=== PATIENT | female | born 1990 | race Caucasian/White ===

== ENCOUNTER 2016-06-27 16:59 | Emergency (ER) | payer SELFPAY ==
--- NOTE | 2016-06-27 20:02 | ER Document Report ---
ED Medical Screen (RME) - General Chief Complaint: Vaginal Bleeding Stated Complaint: POSSIBLE MISCARRIAGE Time Seen by Provider: 06/27/16 19:54 Notes: The patient is a 26-year-old female, LMP 05/25/16, presents after she noticed to like clots in the toilet today. She took 3 tests and 1 of them was positive. She thinks her blood type is negative because she usually requires RhoGam. PE: NAD. RRR. Abdomen soft and non-tender. I have greeted and performed a rapid initial assessment of this patient. A comprehensive ED assessment and evaluation of the patient, analysis of test results and completion of the medical decision making process will be conducted by additional ED providers. TRAVEL OUTSIDE OF THE [place] IN LAST 30 DAYS: No - Related Data Allergies/Adverse Reactions: strawberry Allergy (Verified 06/27/16 17:47) Past Medical History - Social History Frequency of alcohol use: None Drug Abuse: None Renal/ Medical History: Denies: Hx Peritoneal Dialysis Surgical Hx: Negative - Immunizations Hx Diphtheria, Pertussis, Tetanus Vaccination: Yes Physical Exam - Vital signs Vitals: Temp Pulse Resp BP Pulse Ox 98.1 F 91 16 148/91 H 100 06/27/16 17:47 06/27/16 17:47 06/27/16 17:47 06/27/16 17:47 06/27/16 17:47 Course - Vital Signs Vital signs: Temp Pulse Resp BP Pulse Ox 98.1 F 91 16 148/91 H 100 06/27/16 17:47 06/27/16 17:47 06/27/16 17:47 06/27/16 17:47 06/27/16 17:47
--- NOTE | 2016-06-27 21:36 | ER Document Report ---
ED GI/ - General Chief Complaint: Vaginal Bleeding Stated Complaint: POSSIBLE MISCARRIAGE Time Seen by Provider: 06/27/16 19:54 Mode of Arrival: Ambulatory Information source: Patient TRAVEL OUTSIDE OF THE [place] IN LAST 30 DAYS: No - HPI Patient complains to provider of: Vaginal bleeding Onset: This afternoon Timing/Duration: Sudden Quality of pain: Cramping Location: Pelvis Vaginal bleeding (Compared to normal period): Heavier, Passing tissue Associated symptoms: None Exacerbated by: Denies Relieved by: Denies Similar symptoms previously: No Recently seen / treated by doctor: No Notes: 06/27/16 21:41 Patient is a 26-year-old who is a , presenting to the emergency room today complaining of being a few days late on her menstrual cycle, and passing blood with tissue earlier this afternoon, states that she took 3 home test and 1 of them came back positive, she reports crampy pelvic pain, no nausea, vomiting or diarrhea - Related Data Allergies/Adverse Reactions: strawberry Allergy (Verified 06/27/16 17:47) Past Medical History - General Information source: Patient - Social History Smoking Status: Current Every Day Smoker Frequency of alcohol use: None Drug Abuse: None Family History: Reviewed & Not Pertinent Patient has suicidal ideation: No Patient has homicidal ideation: No Renal/ Medical History: Denies: Hx Peritoneal Dialysis Surgical Hx: Negative - Immunizations Hx Diphtheria, Pertussis, Tetanus Vaccination: Yes Review of Systems - Review of Systems Constitutional: No symptoms reported EENT: No symptoms reported Cardiovascular: No symptoms reported Respiratory: No symptoms reported Gastrointestinal: No symptoms reported Genitourinary: No symptoms reported Female Genitourinary: See HPI Musculoskeletal: No symptoms reported Skin: No symptoms reported Hematologic/Lymphatic: No symptoms reported Neurological/Psychological: No symptoms reported -: Yes All other systems reviewed and negative Physical Exam - Vital signs Vitals: Temp Pulse Resp BP Pulse Ox 98.1 F 91 16 148/91 H 100 06/27/16 17:47 06/27/16 17:47 06/27/16 17:47 06/27/16 17:47 06/27/16 17:47 - Notes Notes: - General General appearance: Appears well, Alert In distress: None - HEENT Head: Normocephalic, Atraumatic Eyes: Normal Conjunctiva: Normal Extraocular movements intact: Yes Eyelashes: Normal Pupils: PERRL - Respiratory Respiratory status: No respiratory distress - Cardiovascular Rhythm: Regular - Abdominal Inspection: Normal - Back Back: Normal - Extremities General upper extremity: Normal inspection General lower extremity: Normal inspection - Neurological Neuro grossly intact: Yes Orientation: AAOx4 Bita Coma Scale Eye Opening: Spontaneous Kellogg Coma Scale Verbal: Oriented Kellogg Coma Scale Motor: Obeys Commands Bita Coma Scale Total: 15 - Psychological Associated symptoms: Normal affect, Normal mood - Skin Skin Temperature: Warm Skin Moisture: Dry Skin Color: Normal Course - Re-evaluation Re-evalutation: 06/27/16 21:43 Patient beta hCG negative, ultrasound showed no abnormalities, she was informed of these results and discharged with instructions for follow-up, advised to return if symptoms worsen, patient acknowledges - Vital Signs Vital signs: Temp Pulse Resp BP Pulse Ox 98.1 F 91 16 148/91 H 100 06/27/16 17:47 06/27/16 17:47 06/27/16 17:47 06/27/16 17:47 06/27/16 17:47 - Diagnostic Test Radiology reviewed: Image reviewed, Reports reviewed Discharge - Discharge Clinical Impression: Vaginal bleeding Condition: Stable Disposition: HOME, SELF-CARE Instructions: Vaginal Bleeding ([facility]) Additional Instructions: Follow up with your primary care provider in one to 2 days. Return to the emergency room immediately if symptoms worsen or any additional concerns.
[2016-06-27 21:42] VITALS: BP 141/97
[2016-06-27] MEDS ORDERED: ACETAMINOPHEN 325 MG TABLET PO ONE (21:43)
== END 2016-06-27 22:08 | disposition home or self-care (01) ==
LOC: ER 16:59
DX: N93.9 Abnormal uterine and vaginal bleeding, unspecified (principal); R10.2 Pelvic and perineal pain; F17.200 Nicotine dependence, unspecified, uncomplicated
CPT/HCPCS: 36415; 76817; 84702; 86900; 86901; 99284